=== PATIENT | male | born 1955 | race Caucasian/White ===

== ENCOUNTER 2017-04-18 10:26 | Day surgery (SDC) | payer OTHER ==
[2017-04-14 15:33] VITALS: BMI 22.3
[2017-04-18 11:03] VITALS: TEMP 98.1
[2017-04-18 13:16] VITALS: BP 122/74; PULSE 64
== END 2017-04-18 13:17 | disposition home or self-care (01) ==
LOC: FASU-ENDO 10:26
PROVIDERS: ATTEND Internal Medicine Gastroenterology
PROC: 0DJD8ZZ Inspection of Lower Intestinal Tract, Via Natural or Artificial Opening Endoscopic (ICD-10-PCS; principal; 2017-04-18 12:19)
DX: Z12.11 Encounter for screening for malignant neoplasm of colon (principal)